=== PATIENT | male | born 1960 | race American Indian/Alaskan Native ===

== ENCOUNTER 2017-08-10 05:42 | Day surgery (SDC) | payer OTHER ==
[2017-08-10] MEDS ORDERED: NACL BACTERIOSTATIC INFILTRATI ONE (06:50)
[2017-08-10] MEDS ORDERED: ANCEF/STERILE WATER 2 GM/20 ML IV NR (07:00)
[2017-08-10] MEDS ORDERED: DIPRIVAN 10 MG/ML IV ONE ×3 (07:11→08:42)
[2017-08-10] MEDS ORDERED: SUBLIMAZE ONE (07:12)
--- NOTE | 2017-08-10 07:20 | Anesthesia Consultation ---
Anesthesia Consult and Med Hx Date of service: 08/10/17 - Airway Anesthetic Teeth Evaluation: Poor ROM Head & Neck: Adequate Mental/Hyoid Distance: Adequate Mallampati Class: Class II Intubation Access Assessment: Probably Good - Pulmonary Exam CTA: Yes - Cardiac Exam Cardiac Exam: RRR - Pre-Operative Health Status ASA Pre-Surgery Classification: ASA2 Proposed Anesthetic Plan: General, MAC - Pulmonary Hx Asthma: Yes (last episode was 6 months ago) - Central Nervous System Hx Psychiatric Problems: No - Other Systems Hx Alcohol Use: No Hx Substance Use: No Hx Cancer: No - Additional Comments Anesthesia Medical History Comments: No history of problems with anesthesia in past. Informed consent obtained
[2017-08-10] MEDS ORDERED: NACL 0.9% 1000 ML 1,000 ML ONE (07:21)
--- NOTE | 2017-08-10 07:21 | Anesthesia Day of Surgery ---
Anesthesia Day of Surgery - Day of Surgery Patient Examined: Yes Patient H&P Reviewed: Yes Patient is NPO: Yes
[2017-08-10] MEDS ORDERED: PEPCID IV ONE (07:22)
[2017-08-10] MEDS ORDERED: NACL 0.9% IR ONE (07:30)
[2017-08-10] MEDS ORDERED: XYLOCAINE 1% 20 mL INFILTRATI ONE (07:30)
[2017-08-10] MEDS ORDERED: XYLOCAINE 1% 20 mL ONE (07:45)
[2017-08-10] MEDS ORDERED: VERSED IV PRN (08:00)
[2017-08-10] MEDS ORDERED: NACL 0.9% 1000 ML 1,000 ML IV SCH (08:00)
[2017-08-10] MEDS ORDERED: PEPCID IV NR (08:00)
[2017-08-10] MEDS ORDERED: XYLOCAINE MPF 2% ONE ×2 (08:04→08:16)
--- NOTE | 2017-08-10 09:04 | Short Stay Summary ---
Short Stay Documentation Date of service: 08/10/17 - History Principal diagnosis: epidermal inclusion cyst upper right back H&P: obtained from office - Allergies and Medications Current Medications: Allergies No Known Allergies Allergy (Verified 08/07/17 14:43) Home Medications Medication Instructions Recorded Confirmed Last Taken Type ALBUTEROL Inhaler [ProAir HFA 2 puff INHALATION QDAY PRN 08/10/17 08/10/1707/27 History Inhaler] Fluticasone [Flonase] 1 spray INNOSTRIL QDAY 08/10/17 08/10/17 08/08/17 History Active Medications Cefazolin Sodium (Ancef/Sterile Water 2 Gm/20 Ml) 2 gm IV PREOP NR Stop: 08/10/17 23:59 Famotidine (Pepcid) 20 mg IV PREOP NR Stop: 08/10/17 16:00 Last Admin: 08/10/17 07:26 Dose: 20 mg Sodium Chloride (Nacl 0.9% 1000 Ml) 1,000 mls @ 42 mls/hr IV DIRECT GRIFFIN Last Admin: 08/10/17 07:25 Dose: 42 mls/hr Midazolam HCl (Versed) 2 mg IV PREOP PRN PRN Reason: Agitation Stop: 08/10/17 16:00 Last Admin: 08/10/17 07:30 Dose: 2 mg - Brief post op/procedure progress note Date of procedure: 08/10/17 Pre-op diagnosis: epidermal inclusion cyst right upper back Post-op diagnosis: same Procedure: excision right upper back epidermal inclusion cyst with complex closure Anesthesia: MAC, local Findings: 4cm cyst Surgeon: ADELITA WHEELER Estimated blood loss: minimal Pathology: list (epidermal inclusion cyst) Specimen disposition: to lab Condition: stable - Hospital course Hospital course: Patient was recovered in the PACU and discharged in stable condition when criteria was met. - Disposition Condition at discharge: Good Disposition: DC- TO HOME OR SELFCARE - Discharge Diagnoses (1) Epidermal inclusion cyst Status: Acute Short Stay Discharge Plan Activity: other (do not drive if taking narcotic pain medications) Diet: regular Wound: other (remove outer dressing in 2 days. May shower in 2 days, keep wound open to air. May wash with soap and water, do not scrub. Pat incision dry. Do not submerge incision in hottubs/pools/baths.) Additional Instructions: call Surgeon's office if you have fever>100.4, drainage or redness around the incision Follow up with: EDILBERTO MARKS MD [Primary Care Provider] - 7 Days ADELITA WHEELER DO [Staff Physician] - 14 Days Prescriptions: HYDROcodone/ACETAMINOPHEN [[place] 5-325 Tablet] 1 each PO Q6HR PRN #20 tablet PRN Reason: Pain
--- NOTE | 2017-08-10 09:13 | Operative Report ---
Operative Report Operative Report: Date of operation: 08/10/2017 Preoperative diagnosis: Epidermal inclusion cyst of right upper back Postoperative diagnosis: Same as above Procedure performed: Excision of right upper back epidermal inclusion cyst with complex closure of wound Surgeon: Erika Mims DO Anesthesia: Mac, local Findings: Chronically inflamed cyst with thickened wall, measuring 4 cm Estimated blood loss: Less than 10 mL Specimen: Epidermal inclusion cyst Complications: None Disposition: Stable to PACU HPI and indication: Patient's 57-year-old male who is referred to the office by Dr. Ricky dalal for a cyst on his back. The patient states the cyst had become more bothersome and was filling with fluid. It would drain spontaneously at times. He was set up for an elective excision of the epidermal inclusion cyst. All risks were discussed, questions answered, consent was signed. Procedure in detail: The patient was identified in the preoperative area, taken back to the operating room, placed on the operating room table in lateral decubitus position with right side up. After anesthesia was induced the back around the cyst was prepped and draped in usual sterile fashion a timeout was performed. The skin and subcutaneous tissues were anesthetized with 1% lidocaine. A elliptical incision was made around the central pore of the cyst using a 15 blade. Dissection was carried down through skin and subcutaneous tissue using electrocautery until the cyst wall was encountered. Then using tenotomy scissors the cyst wall was circumferentially dissected free from the surrounding tissue. The cyst was then dissected off the fascia using electrocautery. The cyst wall was thickened and chronically inflamed. The cyst measured approximately 4 x 4 centimeters. The cyst was passed off the table as specimen. The wound was then irrigated and hemostasis achieved with electrocautery. Local anesthetic was infiltrated into the wound. The deep dermal layer was closed with 3-0 Vicryl interrupted sutures. The skin was closed with 4-0 Monocryl subcuticular running stitch and skin glue. A piece of Telfa was applied over this and covered with a 4 x 4 gauze and secured with tape. At the end of the case, all sponge, instrument, sharp counts were correct 2. The patient was awoken from anesthesia and taken to PACU in stable condition.
[2017-08-10] MEDS ORDERED: NORCO 5/325 PO PRN (09:30)
[2017-08-10 10:47] VITALS: BP 134/80
--- NOTE | 2017-08-10 13:29 | Post Anesthesia Evaluation ---
- Post Anesthesia Evaluation Patient Participated: Yes Airway Patent: Yes Stable Respiratory Function: Yes Nausea/Vomiting: No Temp > 96.8F: Yes Pain Manageable: Yes Adequeate Hydration: Yes Anesthesia Complications: No Block Receding Appropriately: Not Applicable Patient on Ventilator: No
== END 2017-08-10 10:13 | disposition home or self-care (01) ==
LOC: OR 05:42
PROVIDERS: ATTEND Surgery
DX: L72.0 Epidermal cyst (principal); J45.909 Unspecified asthma, uncomplicated
CPT/HCPCS: 88304; J0690; J2250; J2704; J3010; J7030